=== PATIENT | female | born 1995 | race Caucasian/White ===

== ENCOUNTER 2024-05-22 18:47 | Emergency (ER) | payer SELFPAY ==
[2024-05-22] MEDS ORDERED: Ondansetron PF 4 MG/2 ML Vial ONE (19:34)
== END 2024-05-22 20:54 | disposition home or self-care (01) ==
LOC: CSHERS 18:47
DX: E86.0 Dehydration (principal); R11.2 Nausea with vomiting, unspecified; R19.7 Diarrhea, unspecified
CPT/HCPCS: 96374; J2405